=== PATIENT | female | born 1995 | race Caucasian/White ===

== ENCOUNTER 2017-11-09 12:17 | Emergency (ER) | payer BC ==
[~2017-11-09] VITALS: Ht 162.6 cm; Wt 77.3 kg
[2017-11-09 12:26] VITALS: TEMP 99.1
[2017-11-09 13:36] LABS: COLLECTION METHOD CLEAN CATCH
[2017-11-09 13:42] LABS: BASO % 0.6 % (0.0-2.0); EOS # 0.4 (0.0-0.7); EOS % 6.2 % (0-4.0); GRAN # 4.1 (1.4-6.5); GRAN % 60.3 % (42.2-75.2); HEMOGLOBIN 12.5 g/dl (12.5-16.0); LYMPH # 1.8 (1.2-3.4); LYMPH % 26.4 % (20.0-51.0); MEAN CELL VOLUME 87 fl (80.0-100.0); MEAN CORPUSCULAR HEMOGLOBIN 30 pg (27.0-31.0); MEAN CORPUSCULAR HGB CONC 34 g/dl (33.0-37.0); MEAN PLATELET VOLUME 11.5 fl (7.4-10.4); MONO # 0.4 (0.1-0.6); MONO % 6.4 % (1.7-9.3); PLATELET COUNT 180 K/mm3 (130-400); RED BLOOD COUNT 4.17 M/mm3 (4.10-5.30); REDCELL DISTRIBUTION WIDTH-CV 12.3 % (11.5-14.5)
[2017-11-09] MEDS ORDERED: SYNTHROID0.075 MG/T PO (13:42)
[2017-11-09] MEDS ORDERED: XYZAL5 MG PO (13:42)
[2017-11-09] MEDS ORDERED: AMITRIPTYLINE H25 M1 PO (13:42)
[2017-11-09] MEDS ORDERED: ALDACTONE 100M100 MG PO (13:42)
[2017-11-09 13:43] LABS: HEMATOCRIT 36.4 % (37.0-47.0)
[2017-11-09] MEDS ORDERED: XULANE1 TDM TD (13:43)
[2017-11-09] MEDS ORDERED: PROAIR HFA0.09 MG/AC IH (13:43)
[2017-11-09] MEDS ORDERED: RT ADVAIR HFA 1112 G IH (13:43)
[2017-11-09 13:50] LABS: ALBUMIN 3.9 gm/dL (3.5-5.0); BILIRUBIN,TOTAL 0.3 mg/dL (0.0-1.0); CALCIUM 8.9 mg/dL (8.4-10.2); CREATININE, serum 0.72 mg/dL (0.52-1.25); POTASSIUM 4.2 mmol/L (3.4-5.0); TOTAL PROTEIN 7.2 gm/dL (6.4-8.2)
[2017-11-09 13:50] LABS: MUCOUS Present /lpf; PH 6 (5-8); SQUAMOUS EPITHELIAL 0-2 /hpf; URINE APPEARANCE Clear; URINE BACTERIA Rare /hpf; URINE BILIRUBIN Negative (NEGATIVE); URINE BLOOD Negative (NEGATIVE); URINE COLOR Yellow; URINE GLUCOSE Negative (NEGATIVE); URINE KETONE Negative (NEGATIVE); URINE LEUKOCYTE ESTERASE Negative (NEGATIVE); URINE NITRATE Negative (NEGATIVE); URINE PROTEIN(semi-quant) Negative (NEGATIVE); URINE RBC None Seen /hpf; URINE UROBILINOGEN Negative (NEGATIVE); URINE WBC 0-2 /hpf
[2017-11-09 14:20] LABS: THYROID STIMULATING HORMONE 0.668 uIU/mL (0.465-4.680)
[2017-11-09 14:49] VITALS: BP 116/77; PULSE 85
== END 2017-11-09 15:11 | disposition home or self-care (01) ==
LOC: COL.ER 12:17
PROVIDERS: Nurse Practitioner Primary Care
DX: E16.2 Hypoglycemia, unspecified (principal); R55 Syncope and collapse; E03.9 Hypothyroidism, unspecified; F32.9 Major depressive disorder, single episode, unspecified; G43.909 Migraine, unspecified, not intractable, without status migrainosus; Z98.890 Other specified postprocedural states; Z79.51 Long term (current) use of inhaled steroids

== ENCOUNTER → 2018-12-02 | Outpatient (CLI) | payer OTHER ==
[~2018-12-02] MED LIST: ALDACTONE 100M100 MG PO; AMITRIPTYLINE H25 M1 PO; PROAIR HFA0.09 MG/AC IH; RT ADVAIR HFA 1112 G IH; SYNTHROID0.075 MG/T PO; XULANE1 TDM TD; XYZAL5 MG PO
== END ==
LOC: COL.RAD 10:30
DX: R10.2 Pelvic and perineal pain (principal); Z97.5 Presence of (intrauterine) contraceptive device

== ENCOUNTER 2019-04-01 23:32 | Emergency (ER) | payer OTHER ==
[~2019-04-01] VITALS: Ht 162.6 cm; Wt 77.3 kg
[2019-04-01 23:36] VITALS: TEMP 97.9
[2019-04-02 03:15] VITALS: BP 102/60; PULSE 78
== END 2019-04-02 03:17 | disposition home or self-care (01) ==
LOC: COL.ER 23:32
DX: T78.3XXA Angioneurotic edema, initial encounter (principal)
CPT/HCPCS: J0171